=== PATIENT | female | born 2000 | race African-American/Black ===

== ENCOUNTER 2023-04-20 18:00 | Emergency (ER) | payer OTHER, SELFPAY ==
[2023-04-20 18:08] VITALS: BP 150/95; PULSE 100; RESP 18; TEMP 37.3; O2SAT 100
[2023-04-20 18:38] LABS: Basophils Absolute Auto 0.1 K/mm3 (0.0-0.1); Basophils Percent Auto 0.8 % (0.2-1.2); Eosinophils Absolute Auto 0.1 K/mm3 (0-0.3); Eosinophils Percent Auto 1.6 % (0-4.4); Hemoglobin 11.5 g/dL (12.0-15.0); Immature Granulocyte Absolute 0.03 K/mm3 (0.00-0.031); Immature Granulocyte Percent A 0.4 % (0-0.5); Lymphocytes Absolute Auto 2.47 K/mm3 (0.9-3.2); Lymphocytes Percent Auto 33.5 % (18.3-44.2); Mean Corpuscular HGB Conc 30.3 g/dl (32-36); Mean Corpuscular Hemoglobin 24.2 pg (26-34); Mean Corpuscular Volume 79.8 fl (80-100); Mean Platelet Volume 10.3 fl (7.4-10.4); Monocytes Absolute Auto 0.7 K/mm3 (0.1-0.6); Neutrophils Percent Auto 54.7 % (45.5-73.1); Platelet Count Result 320 k/mm3 (150-375); Red Blood Count 4.76 M/mm3 (4.2-5.4); Red Cell Distribution Width 16.4 % (11.5-14.5); White Blood Count 7.4 K/mm3 (4.5-10.0)
[2023-04-20 19:05] LABS: Beta HCG Quantitative < 2.39 mIU/ML
--- NOTE | 2023-04-20 19:26 | ED.FEMALEGU ---
HPI - Female Genitourinary General Chief complaint: Vaginal Bleeding Stated complaint: vag bleeding Time Seen by Provider: 04/20/23 19:00 History of Present Illness HPI Narrative: Patient is a 22-year-old female presenting with vaginal bleeding. Patient states that she had unprotected intercourse earlier this month so she took a dose of Plan B. States that she then had a Pap smear about 10 days ago and was tested for STDs. States that everything returned negative but she was told she has ASCUS. States that her period was due at the end of the month but she began bleeding about a week ago. She is concerned that it may be related to her recent Pap. States that she had a negative test at home. Reports some mild intermittent left-sided abdominal pain but no other complaints. Related Data Allergies Allergy/AdvReac Type Severity Reaction Status Date / Time No Known Allergies Allergy Unverified 12/05/14 15:14 Review of Systems Review of Systems: All systems reviewed & are unremarkable except as noted in HPI and below PMFSH Social History Social History Smoking status: Never smoker Exam Narrative: GENERAL: Well-appearing and in no acute distress. Pleasant and cooperative HEAD: Normocephalic, atraumatic. EYES: PERRLA and EOMI. ENT: Mucous membranes moist. NECK: Supple. CHEST: Clear to auscultation. No respiratory distress. HEART: Regular rate and rhythm ABDOMEN: Soft, nontender, nondistended EXTREMITIES: Normal range of motion. No edema. SKIN: Warm, dry, no rash. NEURO: No focal deficits. Alert and oriented x3. PSYCH: Normal mood and affect. Course Vital Signs Vital signs: Vital Signs Temperature 99.1 F 04/20/23 18:08 Pulse Rate 100 04/20/23 18:08 Respiratory Rate 18 04/20/23 18:08 Blood Pressure 150/95 H 04/20/23 18:08 Pulse Oximetry 100 04/20/23 18:08 Oxygen Delivery Room Air 04/20/23 18:08 Temperature 99.1 F 04/20/23 18:08 Pulse Rate 100 04/20/23 18:08 Respiratory Rate 18 04/20/23 18:08 Blood Pressure 150/95 H 04/20/23 18:08 Pulse Oximetry 100 04/20/23 18:08 Oxygen Delivery Room Air 04/20/23 18:08 MDM - Female Genitourinary MDM Narrative Medical decision making narrative: Patient is a 22-year-old female presenting with abnormal vaginal bleeding. Vital stable. Beta-hCG is undetectable. Hemoglobin stable at 11.5. Pelvic exam reveals dark red blood in the vaginal vault. Cervix closed. No abnormal tissue or clots noted. Feel the patient is safe for outpatient management. Her dysfunctional vaginal bleeding is likely related to use of Plan B earlier this month. Discussed ibuprofen 800 mg 3 times daily to help with the bleeding. Advised OB and PCP follow-up. Appropriate return precautions regarding bleeding given. Patient voiced understanding and is agreeable with plan. Discharged in stable condition. Differential Diagnosis Differential diagnosis: Likely bacterial vaginosis, cervicitis, dysmenorrhea and other (Abnormal vaginal bleeding, bleeding in early ) Medical Records Attestation: I reviewed the patient's medical records. Lab Data Attestation: I reviewed the patient's lab results. 04/20/23 18:20 Labs: Lab Results 04/20/23 Range/Units 18:20 WBC 7.4 (4.5-10.0) K/mm3 RBC 4.76 (4.2-5.4) M/mm3 Hgb 11.5 L (12.0-15.0) g/dL Hct 38.0 (37.0-47.0) % MCV 79.8 L (80-100) fl MCH 24.2 L (26-34) pg MCHC 30.3 L (32-36) g/dl RDW 16.4 H (11.5-14.5) % Plt Count 320 (150-375) k/mm3 MPV 10.3 (7.4-10.4) fl Immature Gran % (Auto) 0.4 (0-0.5) % Neut % (Auto) 54.7 (45.5-73.1) % Lymph % (Auto) 33.5 (18.3-44.2) % [place] % (Auto) 9.0 H (2.6-8.5) % Eos % (Auto) 1.6 (0-4.4) % Baso % (Auto) 0.8 (0.2-1.2) % Lymph # (Auto) 2.47 (0.9-3.2) K/mm3 [place] # (Auto) 0.7 H (0.1-0.6) K/mm3 Eos # (Auto) 0.1 (0-0.3) K/mm3 Baso # (Aut
== END 2023-04-20 20:07 | disposition home or self-care (01) ==
PROVIDERS: Student in an Organized Health Care Education/Training Program; Emergency Provider Emergency Medicine
DX: N93.8 Other specified abnormal uterine and vaginal bleeding (principal); R85.610 Atypical squamous cells of undetermined significance on cytologic smear of anus (ASC-US)
CPT/HCPCS: 36415; 81025; 84702; 85025; 85461; 86850; 86900; 86901; 99284